=== PATIENT | female | born 1970 | race Hispanic/Latino ===

== ENCOUNTER → 2019-04-28 | Day surgery (SDC) | payer OTHER ==
[2019-04-22 16:32] LABS: BASOPHILS % 0.3 % (0.0-1.0); EOSINOPHILS # (AUTO) 0.4 (0.0-0.4); EOSINOPHILS % 4.1 % (0.0-6.0); HEMATOCRIT 41.6 % (34.2-44.1); LYMPHOCYTES # (AUTO) 2.3 (1.0-3.2); LYMPHOCYTES % 25.2 % (18.0-39.1); MEAN CORPUSCULAR HEMOGLOBIN 29.5 pg (28-32); MEAN CORPUSCULAR HGB CONC 33.7 g/dL (31-35); MEAN CORPUSCULAR VOLUME 87.6 fL (81-99); MONOCYTES # (AUTO) 0.7 (0.2-0.8); MONOCYTES % 7.2 % (4.4-11.3); NEUTROPHILS # (AUTO) 5.7 (2.1-6.9); PLATELET COUNT 249 x10e3/uL (140-360); RED BLOOD COUNT 4.75 x10e6/uL (3.6-5.1); RED CELL DISTRIBUTION WIDTH 12.5 % (11.7-14.4)
[2019-04-22 16:34] LABS: CLARITY,URINE CLEAR (CLEAR); COLOR,URINE YELLOW (YELLOW); LEUKOCYTE ESTERASE ,URINE NEGATIVE (NEGATIVE); NITRITE,URINE NEGATIVE (NEGATIVE); PROTEIN,URINE DIPSTICK NEGATIVE (NEGATIVE); URINE UROBILINOGEN 0.2 mg/dL (0.2 - 1)
[2019-04-22 16:35] LABS: BILIRUBIN,URINE NEGATIVE (NEGATIVE); KETONES,URINE NEGATIVE (NEGATIVE)
[2019-04-22 16:52] LABS: ALANINE AMINOTRANSFERASE 45 IU/L (0-55); ALBUMIN/GLOBULIN RATIO 1.1 (0.8-2.0); ALKALINE PHOSPHATASE 44 IU/L (40-150); ANION GAP 15.9 mmol/L (8-16); BLOOD UREA NITROGEN 11 mg/dL (7-26); BUN/CREATININE RATIO 14 (6-25); CALCIUM 9.9 mg/dL (8.4-10.2); CARBON DIOXIDE 24 mmol/L (22-29); CHLORIDE 104 mmol/L (98-107); CREATININE, SERUM 0.76 mg/dL (0.57-1.11); EST GLOMERULAR FILTRATION RATE > 60 ML/MIN (60-); GLUCOSE 125 mg/dL (74-118); POTASSIUM 3.9 mmol/L (3.5-5.1); SODIUM 140 mmol/L (136-145)
[~2019-04-28] MED LIST: BENICAR20 MG PO; BUPIVACAINE 0.25%/EPI 30ML SDV INJ ONE; CALCIUM CARBON500 MG PO; CRESTOR10 MG PO; DEXAMETHASONE SOD PHOS INJ 4 MG/ML VIAL ONE; FARXIGA5 MG PO; FENTANYL CITRATE/PF 100MCG/2 ML INJ ONE; GLYCOPYRROLATE INJ 0.2 MG/ML VIAL ONE; IOPAMIDOL 300MG/ML 50ML INFUS..BTL IV ONE; JANUVIA100 MG PO; LEVOTHYROXINE50 MCG PO; LIDOCAINE HCL 2% LOCAL INJ 5 ML SDV VIAL INJ ONE; METFORMIN HCL500 MG PO; MIDAZOLAM HCL 2 MG/2 ML VIAL ONE; NEOSTIGMINE 1 MG/ML 10ML VIAL ONE; ONDANSETRON HCL INJ 2MG/ML 2ML 2 MG/ML VIAL ONE; PROAIR HFA INH8.5 GM INH; PROPOFOL IV EMULSION 10 MG/ML 20 ML VIAL ONE; ROCURONIUM BROMIDE 10 MG/ML 5ML VIAL ONE; SEVOFLURANE INHAL SOLN 250 ML PEN BTL ONE; SINGULAIR10 MG PO
--- NOTE | 2019-04-28 15:05 | Diagnostic Imaging Report ---
EXAM: CHOLANGIOGRAM INTROP DATE: 04/28/2019 12:00 AM INDICATION: Intraoperative cholangiogram COMPARISON: None FINDINGS: Please note that the examination was not performed by the radiologist. Please refer to separate procedural report for further details. 2 radiographs were obtained of the right upper quadrant. There is apparent cannulation and contrast opacification of the common bile duct. There is no evidence for biliary ductal dilatation or filling defect on the provided images. Contrast noted flowing into the small bowel. IMPRESSION: Intraoperative cholangiogram as above. Signed by: Dr. Jag Graham MD on 04/28/2019 3:02 PM
[2019-04-28 15:45] VITALS: BP 140/80
--- NOTE | 2019-04-28 18:24 | Operative Report ---
DATE OF PROCEDURE: 04/28/2019 SURGEON: Mike Sterling MD PREOPERATIVE DIAGNOSES: Cholecystitis and cholelithiasis, rule out common bile duct stones. POSTOPERATIVE DIAGNOSES: Cholecystitis, cholelithiasis, and no common bile duct stones. OPERATIONS PERFORMED: Laparoscopic cholecystectomy and intraoperative cholangiograms. WAITRESS: MINAL Mcghee. ANESTHESIA: General. COMPLICATIONS: None. ESTIMATED BLOOD LOSS: Minimal. DESCRIPTION OF PROCEDURE: With the patient lying in bed in the supine position under good general anesthesia, the abdomen was prepped with Betadine solution and draped in the usual manner. A Veress needle was introduced into the right upper quadrant and pneumoperitoneum was established without any difficulty. A 5 mm trocar was placed in the right subcostal region and a 5 mm video laparoscope was placed into the intraabdominal cavity. Video laparoscopy at this point revealed the presence of some adhesions to the lower abdomen from the patient's previous appendectomy, but the subumbilical area was free. An 11 mm trocar was then placed through the umbilicus and a 10 mm video laparoscope was placed into the intraabdominal cavity. Laparoscopy at this point revealed a gallbladder that contained multiple stones. The liver showed some fatty infiltration. There was some adhesions to the liver from the patient's previous surgeries and all of these were taken down. The rest of the abdominal exploration was within normal limits. Another two 5 mm trocars were placed in the right subcostal region. The adhesions to the gallbladder were then taken down and the peritoneum was opened at the neck of the gallbladder. The cystic duct was identified. The cystic duct was then followed to its junction with the common duct. The cystic duct was then circumferentially dissected away from the common duct and a clip was placed at the neck of the gallbladder. A small opening was made into the cystic duct and a cholangiocath was introduced into the cystic duct using half-strength dye. The fluoroscopy was then performed and the dye was injected into the biliary tree. This showed free flow of dye into the duodenum and no common duct filling defects. The cholangiocath was then removed. The cystic duct was then doubly clipped and divided. The cystic artery had an anterior and a posterior branch and both of these were individually clipped and divided. The gallbladder was then slowly and carefully taken off the liver bed using the cautery, scissors and perfect hemostasis was ascertained. The gallbladder was grasped through the umbilical port and removed without any difficulty. Video laparoscopy was then again carried out. The liver bed was found to be perfectly dry. All the excess fluid was aspirated. The pneumoperitoneum was evacuated and all the trocars were removed under direct vision. The midline fascia at the umbilicus was then closed with a [id number] of 0 Vicryl. All layers were infiltrated on the way out with solution of 0.25% Marcaine. Subcutaneous tissue was approximated with 3-0 Vicryl and the skin was closed with subcuticular 5-0 Vicryl. Benzoin, Steri-Strips, and Band-Aids were applied. The sponge, lap, and needle count was correct. The patient tolerated the procedure well and returned to the recovery room in stable condition. MD LATONYA Hough/ROXANN /[id number]
--- OUTSIDE RECORDS SUMMARY | 2019-05-01 13:12 | XMS REPORT ---
Author Author [facility] Address Unknown Phone Unavailable Care Team Providers Care Wood Floor Layer Name Role Phone Andrew CHAUDHRY Unavailable Unavailable Problems This patient has no known problems. Allergies, Adverse Reactions, Alerts This patient has no known allergies or adverse reactions. Medications This patient has no known medications. Encounters Start Date/Time End Date/Time Encounter Type Admission Type Attending Clinicians Care Facility Care Department Encounter ID 2019-03-12 06:25:00 2019-03-12 06:25:00 Outpatient [id number] Results Test Description Test Time Test Comments Text Results Atomic Results Result Comments CHOLANGIOGRAM INTROP 2019-04-28 15:00:00 [place] [address] Patient Name: AYAN PHELAN MR #: [id number] : 1970 Age/Sex: 48/F Req #: [id number] [facility] Physician: Ordered by: ISAMAR CHAUDHRY MD Report #: [id number] Location: OR Room/Bed: Procedure: [id number] DX/CHOLANGIOGRAM INTROP Exam Date: 04/28/19 Exam Time: 1254 REPORT STATUS: Signed EXAM: CHOLANGIOGRAM INTROP DATE: 04/28/2019 12:00 AM INDICATION: Intraoperative cholangiogram COMPARISON: None FINDINGS: Please note that the examination was not performed by the radiologist. Please refer to separate procedural report for further details. 2 radiographs were obtained of the right upper quadrant. There is apparent cannulation and contrast opacification of the common bile duct. There is no e vidence for biliary ductal dilatation or filling defect on the provided images. Contrast noted flowing into the small bowel. IMPRESSION: Intraoperative cholangiogram as above. Signed by: Dr. Jag Graham MD on 04/28/2019 3:02 PM Dictated By: JAG GRAHAM MD 1502 Transcribed By: WILFRIDO on 04/28/19 1502 COPY TO: ISAMAR CHAUDHRY MD BREAST ULTRASOUND BILATERAL 2018-05-29 09:09:39 - DIAG MAMM BILATERAL MIGEL CAD DIGITALBILATERAL DIGITAL DIAGNOSTIC MAMMOGRAM 3D/2D WITH CAD: 05/29/2018CLINICAL: Follow up to previous exam. Digital breast tomosynthesis was performed in addition to routine CC and MLO views. Current mammographic images were evaluated by either a [employer] M-Vu or a Bench [employer] CAD (computer aided detection system). Comparison is made to exams dated 05/20/2017 mammogram, 06/05/2016 mammogram, and 06/28/2015 mammogram - [facility]. The tissue of both breasts is predominantly fatty. There are post operative findings and biopsy clips in the left breast. No suspicious mass, architectural distortion, malignant type calcification, or lymph node abnormality detected. INCOMPLETE ASSESSMENT: ADDITIONAL IMAGING EVALUATION RECOMMENDEDUltrasound pendi ng for additional evaluation. Resume annual screening mammography in one year. - BREAST ULTRASOUND BILATERALULTRASOUND OF BOTH BREASTS AND BOTH AXILLA: 05/29/2018Comparison is made to exams dated 05/20/2017 mammogram, 06/05/2016 mammogram, and 06/28/2015 mammogram - [facility]. Real-time ultrasound of both breasts and both axilla was performed. No abnormalities were seen sonographically in either breast or either axilla. Clinical breast exam was unremarkable.IMPRESSION: NEGATIVE There is no sonographic evidence of malignancy. Patient has been informed that she should have a screening mammogram and supplemental ultrasound in 1 year.Eunice Bunch M.D. dm/:05/29/2018 09:09:39 copy to: Shelley Ho [employer]ST[employer]PERVISOR, ph: [phone], fax: [phone] Technologist: Nargis NAPIER, [facility] sent: BIRADS 1-2 Combo FU Letter Mammogram BI-RADS: 0 Indeterminate Ultrasound BI-RADS: 1 Negative DIAG MAMM BILATERAL MIGEL CAD DIGITAL 2018-05-29 09:09:39 - DIAG MAMM BILATERAL MIGEL CAD DIGITALBILATERAL DIGITAL DIAGNOSTIC MAMMOGRAM 3D/2D WITH CAD: 05/29/2018CLINICAL: Follow up to previous exam. Digital breast tomosynthesis was performed in addition to routine CC and MLO views. Current mammographic images were evaluated by either a [employer] M-Vu or a [employer] CAD (computer aided detection system). Comparison is made to exams dated 05/20/2017 mammogram, 06/05/2016 mammogram, and 06/28/2015 mammogram - [facility] The tissue of both breasts is predominantly fatty. There are post operative findings and biopsy clips in the left breast. No suspicious mass, architectural distortion, malignant type calcification, or lymph node abnormality detected. INCOMPLETE ASSESSMENT: ADDITIONAL IMAGING EVALUATION RECOMMENDEDUltrasound pendi ng for additional evaluation. Resume annual screening mammography in one year. - BREAST ULTRASOUND BILATERALULTRASOUND OF BOTH BREASTS AND BOTH AXILLA: 05/29/2018Comparison is made to exams dated 05/20/2017 mammogram, 06/05/2016 mammogram, [facility] Real-time ultrasound of both breasts and both axilla was performed. No abnormalities were seen sonographically in either breast or either axilla. Clinical breast exam was unremarkable.IMPRESSION: NEGATIVE There is no sonographic evidence of malignancy. Patient has been informed that she should have a screening mammogram and supplemental ultrasound in 1 year.Eunice Bunch M.D. dm/:05/29/2018 09:09:39 copy to: Shelley Ho NP, ph: [phone], fax: [phone] Technologist: Nargis NAPIER, [facility]letter sent: BIRADS 1-2 Combo FU Letter Mammogram BI-RADS: 0 Indeterminate Ultrasound BI-RADS: 1 Negative
== END | disposition home or self-care (01) ==
LOC: OR 10:05
PROVIDERS: ATTEND Surgery
DX: K80.10 Calculus of gallbladder with chronic cholecystitis without obstruction (principal); K76.0 Fatty (change of) liver, not elsewhere classified; E11.9 Type 2 diabetes mellitus without complications; I10 Essential (primary) hypertension; J45.909 Unspecified asthma, uncomplicated; E78.5 Hyperlipidemia, unspecified; E03.9 Hypothyroidism, unspecified; Z88.0 Allergy status to penicillin; Z88.2 Allergy status to sulfonamides; Z01.810 Encounter for preprocedural cardiovascular examination; Z01.812 Encounter for preprocedural laboratory examination; Z79.84 Long term (current) use of oral hypoglycemic drugs
CPT/HCPCS: 36415 ×2; 47563; 74300; 80053; 81003; 82948; 85025; 88304; 93005; C1766; J1100; J2001; J2250; J2405; J2704; J2710; J3010; Q9967